=== PATIENT | female | born 1985 | race Caucasian/White ===

== ENCOUNTER 2022-07-18 18:50 | Emergency (ER) | payer MEDICAID ==
[~2022-07-18] VITALS: Ht 154.9 cm; Wt 63.6 kg
[2022-07-18 18:58] VITALS: BP 117/77
== END 2022-07-18 23:35 | disposition home or self-care (01) ==
LOC: ER 18:50
DX: H57.12 Ocular pain, left eye (principal)
CPT/HCPCS: 99282